=== PATIENT | female | born 1925 | race Caucasian/White ===

== ENCOUNTER → 2016-06-25 | Outpatient (CLI) | payer OTHER ==
[~2016-06-25] MED LIST: ASPIR 8181 MG PO; BILBERRY1 EAC1 PO; COQ-10100 MG PO; FISH OIL 1,001000 MG PO; ICAPS TABLET1 EACH PO; KLOR-CON 1010 MEQ PO; LASIX 20 MG TAB20 MG PO; LUTEIN20 MG PO; METOPROLOL TART25 MG PO; NORCO 10-325 T1 EACH PO; OMEPRAZOLE 20 M20 M1 PO; VITAMIN D3400 UNIT PO; ZOCOR20 MG PO
--- NOTE | ~2016-06-25 | P ---
[facility] [place] [address] PROCEDURE REPORT Name: FAY CHURCHILL Room #: REG [facility].#: [id number] Admission: 06/25/16 Attend Phys: Denny Felix MD Discharge: Date of : [birth year] Report #: [id number] THIS REPORT FOR: //name// CC: Denny Denton DATE OF SERVICE: 06/25/2016 BRONCHOSCOPY NOTE PROCEDURE: Fiberoptic bronchoscopy with bronchial lavage in the right lower lobe. INDICATION: Diffuse pulmonary infiltrates, ground glass in nature and interstitial. ASA classification class 3. PROCEDURE NOTATION: After discussing the risks and benefits of planned procedure with patient and her son, they desired to proceed. After obtaining informed consent, she was brought to endoscopy, where she was placed on continuous cardiopulmonary monitoring and supplemental oxygen. She was then given 4% lidocaine nebulized to anesthetize the upper respiratory tract. Once complete, she received conscious sedation, a total of 2 mg of Versed were required to provide adequate sedation. Please see the anesthesia nurse log for further details. Once complete, the bronchoscope was passed through an oral biteblock until the vocal cords were visualized. Lidocaine 1% was instilled in the vocal cords to provide topical anesthesia. The vocal cords moved appropriately both before and after procedure. Bronchoscope was then passed in the trachea and 1% lidocaine was instilled in the tracheobronchial tree bilaterally to provide topical anesthesia. Once complete, airways were surveyed. FINDINGS: Mainstem, lobar, segmental and subsegmental bronchi were all explored. Airways were patent, with no significant anatomic variation or disease. Because of the diffuse interstitial infiltrates, the bronchoscope was wedged in the subsegment of the right lower lobe, where bronchioalveolar lavage was performed. This specimen was sent for routine AFB fungal cultures. In addition, fluid was sent for cell count with differential and CD-4 to CD-8 ratio to evaluate for possible hypersensitivity pneumonitis. Also sent for eosinophil count to evaluate for eosinophilic pulmonary infiltrates. The patient tolerated well, with no noted complications. IMPRESSION: Diffuse interstitial infiltrates, status post bronchoscopy with bronchioalveolar lavage, with normal findings. PLAN: Await above pathologic and microbiologic tests. [address] [address] PROCEDURE REPORT Name: ZHAOFAY VEGA [id number] Admission: 06/25/16 Attend Phys: Denny Felix MD Discharge: Date of : 08/[birth year] Report #: [id number] Please note the procedure was performed in OR 6. <ELECTRONICALLY SIGNED> By: Denny Felix MD 07/14/16 1517 1622 [id number] Denny Felix MD /nt
--- NOTE | ~2016-06-25 | CNG ---
[facility] [place] [address] CYTO-NONGYN REPORT PROCEDURE Name: ROSLYN CAIN Room #: REG [facility]..#: [id number] Admission: 06/25/16 Date of : 08/[birth year] Discharge: Report #: [id number] Path Case #: [id number] CYTOPATHOLOGY REPORT COLLECTION DATE: 06/25/2016 RECEIVED DATE: 06/25/2016 SUBMITTING PHYS: Dr. Denny Felix OTHER PHYS: ADDENDUM REPORT (Order Date: 06/30/2016 13:07) ADDENDUM COMMENT: This addendum is issued to report a flow cytometry analysis report generated by [email or web address], [id number]. The specimen is reported as "low number of T cells with a CD4/CD8 ratio of 1". The comment further alludes to the fact that an elevated CD4/CD8 ratio in in BAL fluid has been associated with sarcoidosis. A decreased CD4/CD8 ratio has been associated with hypersensitivity pneumonitis. The CD4/CD8 ratio may vary during the course of the disease process as well. The results must therefore be correlated with morphological clinical findings. Please see separate report generated by [email or web address] for complete details. The originally rendered diagnosis remains unchanged. (IUV:csd; d/t: 06/30/2016) Professional services performed by [facility] at [facility] [address] , [place] [address] ELECTRONICALLY SIGNED BY: Loren Lew M.D. DATE/TIME:06/30/2016 15:02 CLINICAL HISTORY: Cough SPECIMEN(S) RECEIVED: A.Bronchoalveolar lavage,RLL * * * * * * * * * * * * FINAL DIAGNOSIS: A. Bronchoalveolar lavage,RLL: - No malignant cells identified. Pulmonary macrophages, few bronchial epithelial cells, and mucus. PATHOLOGIST: Loren Lew M.D. REPORT ELECTRONICALLY SIGNED BY: Loren Lew M.D. DATE/TIME: 06/28/2016 14:35 * * * * * * * * * * * * GROSS PATHOLOGY: [address] [address] CYTO-NONGYN REPORT PROCEDURE Name: ROSLYN CAIN MCINTOSH [facility] [id number] Admission: 06/25/16 Date of : [birth year] Discharge: Report #: [id number] Path Case #: [id number] A. Bronchoalveolar lavage,RLL: The specimen is submitted unfixed, labeled "Roslyn Cain". Received by the Cytology Department is 10 mL of pink fluid. One ThinPrep slide was prepared. (kg 06/25/16) MANAGER WEB APPLICATION(S): TAI Roy([facility]) INITIAL CPT CODE(S): A; 01666 Professional services performed by [facility] at [address] , [place] [address] Technical services performed by [facility] at [address] [place] [address], [address], [place] [address]. [facility] [address] [facility], [address] [place] [address] PHONE: [phone] DIRECTOR: Som Souza M.D. * * * END OF REPORT * * *
[2016-06-25 23:08] LABS: BF LINING CELLS 0 % (Not Estab.); BF MACROPHAGE 0 % (Not Estab.); BF NEUTROPHILS 70 % (0-24); BF NUCLEATED CELLS 434 /mm3 (0-499); BF RBC 1000 /uL (Not Estab.); CLARITY Hazy (Clear); COLOR Clear (())
== END ==
LOC: GI 06:52
PROVIDERS: Internal Medicine Pulmonary Disease
DX: R91.8 Other nonspecific abnormal finding of lung field (principal); I21.3 ST elevation (STEMI) myocardial infarction of unspecified site; I10 Essential (primary) hypertension; E78.00 Pure hypercholesterolemia, unspecified; K57.30 Diverticulosis of large intestine without perforation or abscess without bleeding